=== PATIENT | male | born 1965 | race Caucasian/White ===

== ENCOUNTER 2017-05-19 10:04 | Inpatient (IN) | payer OTHER ==
[2017-05-19 10:52] VITALS: BMI 22.3
--- NOTE | 2017-05-19 11:29 | HP ---
CIWA Score - CIWA Score Nausea/Vomitin-No Nausea/No Vomiting Muscle Tremors: 4-Moderate,w/Arms Extend Anxiety: 4-Mod. Anxious/Guarded Agitation: 4-Moderately Restless Paroxysmal Sweats: 3 Orientation: 3-Disoriented Date>2 days Tacttile Disturbances: 0-None Auditory Disturbances: 0-None Visual Disturbances: 0-None Headache: 3-Moderate CIWA-Ar Total Score: 21 Admission ROS BHS - HPI Chief Complaint: Withdrawal sx Allergies/Adverse Reactions: Allergies Allergy/AdvReac Type Severity Reaction Status Date / Time No Known Allergies Allergy Verified 05/19/17 10:25 History of Present Illness: 52 y/o man with a long hx. of alcoholism is admitted for detox. Pt. reports previous detox & rehab followed by 2 yrs. sobriety. Exam Limitations: No Limitations - Ebola screening Have you traveled outside of the country in the last 21 days: No Have you had contact with anyone from an Ebola affected area: No Have you been sick,other than usual withdrawal symptoms: No Do you have a fever: No - Review of Systems Constitutional: Diaphoresis EENT: reports: No Symptoms Reported Respiratory: reports: No Symptoms reported Cardiac: reports: No Symptoms Reported GI: reports: Abdominal cramping : reports: Frequency Musculoskeletal: reports: Back Pain Integumentary: reports: Sweating Neuro: reports: Headache, Tremors, Other (frequent blackouts) Endocrine: reports: No Symptoms Reported Hematology: reports: No Symptoms Reported Psychiatric: reports: Agitated, Anxious Other Systems: Reviewed and Negative Patient History - Patient Medical History Hx Anemia: No Hx Asthma: No Hx Chronic Obstructive Pulmonary Disease (COPD): No Hx Cancer: No Hx Cardiac Disorders: No Hx Congestive Heart Failure: No Hx Hypertension: No Hx Hypercholesterolemia: Yes (no meds) Hx Pacemaker: No HX Cerebrovascular Accident: No Hx Seizures: No Hx Dementia: No Hx Diabetes: No Hx Gastrointestinal Disorders: No Hx Liver Disease: Yes (Hep c) Hx Genitourinary Disorders: No Hx Sexually Transmitted Disorders: No Hx Renal Disease (ESRD): No Hx Thyroid Disease: No Hx Human Immunodeficiency Virus (HIV): No Hx Hepatitis C: Yes (Needs tx.) Hx Depression: Yes Hx Suicide Attempt: Yes (many yrs. ago at 14 y/o tried to hang himself) Hx Bipolar Disorder: Yes Hx Schizophrenia: No - Patient Surgical History Past Surgical History: No Hx Neurologic Surgery: No Hx Cataract Extraction: No Hx Cardiac Surgery: No Hx Lung Surgery: No Hx Breast Surgery: No Hx Breast Biopsy: No Hx Abdominal Surgery: No Hx Appendectomy: No Hx Cholecystectomy: No Hx Genitourinary Surgery: No Hx Section: No Hx Orthopedic Surgery: No Anesthesia Reaction: No - PPD History Previous Implant?: Yes Documented Results: Positive w/o proof PPD to be Administered?: No - Smoking Cessation Smoking history: Current every day smoker Have you smoked in the past 12 months: Yes Aproximately how many cigarettes per day: 8 Hx Chewing Tobacco Use: No Initiated information on smoking cessation: Yes 'Breaking Loose' booklet given: 05/19/17 - Substance & Tx. History Hx Alcohol Use: Yes Hx Substance Use: No Substance Use Type: Alcohol Hx Substance Use Treatment: Yes (Detox & Rehab at [facility] 2014) - Substances Abused Alcohol-vodka/beer Route: Oral Frequency: Daily Amount used: 2-3 pts./2-3 6 pks. Age of first use: 13 Date of Last Use: 05/18/17 Family Disease History - Family Disease History Family History: Denies Admission Physical Exam [facility] - Vital Signs Vital Signs: Vital Signs - 24 hr 05/19/17 10:44 Temperature 96 F L Pulse Rate 82 Respiratory 20 Rate Blood Pressure 114/85 - Physical General Appearance: Yes: Alcohol on Breath, Tremorous, Irritable, Sweating, Anxious HEENTM: Yes: Within Normal Limits Respiratory: Yes: Chest Non-Tender, Lungs Clear, Normal Breath Sounds Neck: Yes: Supple Breast: Yes: Breast Exam Deferred Cardiology: Yes: Regular Rhythm, Regular Rate, S1, S2 Abdominal: Yes: Normal Bowel Sounds, Non Tender, Soft Genitourinary: Yes: Frequency (from alcohol) Back: Yes: Within Normal Limits Musculoskeletal: Yes: Within Normal Limits Extremities: Yes: Tremors Neurological: Yes: Fully Oriented, Alert Integumentary: Yes: Diaphoresis Lymphatic: Yes: Within Normal Limits - Diagnostic (1) Alcohol dependence with uncomplicated withdrawal Current Visit: Yes Status: Acute Cleared for Admission [facility] - Detox or Rehab [facility] Level of Care: Medically Managed Detox Regimen/Protocol: Librium [facility] Breath Alcohol Content Breath Alcohol Content: 0.062 Urine Drug Screen - Results Drug Screen Negative: Yes
[2017-05-19] MEDS ORDERED: LOPERAMIDE HCL 2 MG CAPSULE PO PRN (11:52)
[2017-05-19] MEDS ORDERED: MENTHOL/PHENOL 1 EACH UD MM PRN (11:52)
[2017-05-19] MEDS ORDERED: MAGNESIUM HYDROX 2400MG/30ML ORAL SUSPENSION 30 ML CUP PO PRN (11:52)
[2017-05-19] MEDS ORDERED: MAG HYDROX/AL HYDROX/SIMETH 30 ML UNIT-DOSE CUP PO PRN (11:52)
[2017-05-19] MEDS ORDERED: MAGNESIUM CITRATE 300 ML BOTTLE PO PRN (11:52)
[2017-05-19] MEDS ORDERED: IBUPROFEN 400 MG TABLET (FP) PO PRN (11:52)
[2017-05-19] MEDS ORDERED: NICOTINE POLACRILEX 2 MG GUM BUC PRN (11:52)
[2017-05-19] MEDS ORDERED: guaiFENesin/D-METHORPHAN HB 10 ML UNIT-DOSE CUPS PO PRN (11:52)
[2017-05-19] MEDS ORDERED: hydrOXYzine PAMOATE 50 MG CAPSULE (FP) PO PRN (11:52)
[2017-05-19] MEDS ORDERED: P-EPHED 60MG/TRIPROLIDI 2.5MG TABLET PO PRN (11:52)
[2017-05-19] MEDS ORDERED: diphenhydrAMINE HCL 50 MG CAPSULE PO PRN (11:52)
[2017-05-19] MEDS ORDERED: chlordiazePOXIDE HCL 25 MG CAPSULE PO PRN (11:52)
[2017-05-19] MEDS ORDERED: ACETAMINOPHEN 325 MG TABLET (FP) PO PRN (11:52)
[2017-05-19] MEDS ORDERED: chlordiazePOXIDE HCL 25 MG CAPSULE PO ONE (12:27)
[2017-05-19 14:05] LABS: MCH 33.8 pg (25.7-33.7); MCHC 33.8 g/dl (32.0-35.9); MEAN PLT VOLUME 8.3 fl (7.5-11.1); PLATELET COUNT 70 K/MM3 (134-434); RDW 14.9 % (11.9-15.9); WHITE BLOOD COUNT 4.2 K/mm3 (4.0-10.0)
[2017-05-19] MEDS: NICOTINE 21 MG/24 HOURS TOPICAL PATCH TD SCH (14:07)
[2017-05-19 14:15] LABS: ALBUMIN 2.9 g/dl (3.4-5.0); ANION GAP 9 (8-16); CALCIUM 7.9 mg/dL (8.5-10.1); CO2 26 mmol/L (21-32); CREATININE 0.8 mg/dL (0.7-1.3); GLUCOSE,RANDOM 162 mg/dL (74-106); SGPT/ALT 106 U/L (12-78)
[2017-05-19 14:17] LABS: ALK PHOS 87 U/L (45-117); BILIRUBIN,TOTAL 0.6 mg/dL (0.2-1.0); SGOT/AST 139 U/L (15-37); TOT PROT 7.9 g/dl (6.4-8.2)
[2017-05-19 14:34] LABS: SICKLE CELL SCREEN NEGATIVE (NEGATIVE)
[2017-05-19 15:06] LABS: HIV 1 & 2 AB NEGATIVE; HIV 1 AGp24 NEGATIVE
--- NOTE | 2017-05-19 16:25 | CONSULT ---
[facility] Psychiatric Consult - Data Date of interview: 05/19/17 Admission source: [facility] Identifying data: This is 52 years old H male residing with his family, employed admitted for Alcohol dependence. Substance Abuse History: Patient reports strting drinking since 13 years old, relapsed recently after 2 years of abstinence. Medical History: Significant for Hep C,hyperlipidemia. Psychiatric History: Patient reports first contact with psychiatrist in [place] about 10 years ago to address his depression,mood instability.He had no history of psychiatric hospitalizations,one suicidal attempt at the age of 14.Dx with Mood disorder,Bipolar disorder,no manic episodes reported.patient is not on psychiatric medications and is not willing to restart it at present time. Physical/Sexual Abuse/Trauma History: denies Mental Status Exam - Mental Status Exam Cognitive Function: Grossly Intact Patient Appearance: Unkempt Mood: Sad Affect: Appropriate, Mood Congruent Patient Behavior: Appropriate, Cooperative Speech Pattern: Clear Voice Loudness: Normal Thought Process: Goal Oriented Thought Disorder: Not Present Hallucinations: Denies Suicidal Ideation: Denies Homicidal Ideation: Denies Insight/Judgement: Fair Sleep: Fair Appetite: Fair Muscle strength/Tone: Normal Gait/Station: Normal Psychiatric Findings - Problem List ([place] 1, 2,3) (1) Alcohol dependence with uncomplicated withdrawal Current Visit: Yes Status: Chronic (2) Hep C w/o coma, chronic Current Visit: Yes Status: Inactive (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
[2017-05-19 17:10] LABS: URINE APPEARANCE SLCLOUDY; URINE BILIRUBIN NEGATIVE (NEGATIVE); URINE BLOOD 2+ (NEGATIVE); URINE COLOR YELLOW; URINE GLUCOSE (UA) 1+ (NEGATIVE); URINE KETONE NEGATIVE (NEGATIVE); URINE LEUK ESTERASE NEGATIVE (NEGATIVE); URINE NITRITE NEGATIVE (NEGATIVE); URINE PROTEIN NEGATIVE (NEGATIVE)
[2017-05-19 17:25] LABS: URINE MUCUS RARE; URINE RBC 3 /hpf (0-3); URINE WBC 1 /hpf (3-5)
[2017-05-19] MEDS: chlordiazePOXIDE HCL 25 MG CAPSULE PO SCH ×2 (17:31→22:13)
[2017-05-19] MEDS: THIAMINE HCL 100 MG TABLET (FP) PO SCH (22:13)
--- NOTE | 2017-05-19 22:14 | EKG ---
Test Reason : Blood Pressure : / mmHG Vent. Rate : 063 BPM Atrial Rate : 063 BPM P-R Int : 120 ms QRS Dur : 084 ms QT Int : 414 ms P-R-T Axes : 063 048 042 degrees QTc Int : 423 ms NORMAL SINUS RHYTHM NORMAL ECG NO PREVIOUS ECGS AVAILABLE REPEAT EKG IF CLINICALLY INDICATED Confirmed by CAMMY CR MD ([id number]) on 05/19/2017 10:14:22 PM Referred By: Confirmed By:CAMMY CR MD
[2017-05-20] MEDS: chlordiazePOXIDE HCL 25 MG CAPSULE PO SCH ×4 (05:40→22:21)
[2017-05-20] MEDS: NICOTINE 21 MG/24 HOURS TOPICAL PATCH TD SCH (10:38)
[2017-05-20] MEDS: PRENATAL VITAMINS W/ FOLIC ACID TABLET (FP) PO SCH (10:38)
--- NOTE | 2017-05-20 16:13 | PN ---
S CIWA - CIWA Score Nausea/Vomitin-Mild Nausea/No Vomiting Muscle Tremors: 5 Anxiety: 3 Agitation: 2 Paroxysmal Sweats: 1-Minimal Palms Moist Orientation: 0-Oriented Tacttile Disturbances: 2-Mild Itch/Numbness/Burn Auditory Disturbances: 0-None Visual Disturbances: 0-None Headache: 4-Moderately Severe CIWA-Ar Total Score: 18 BHS Progress Note (SOAP) Subjective: Tremors, Anxious, H/A. Objective: PT. A & O X 3. NO ACUTE DISTRESS. 05/20/17 16:11 Vital Signs Temperature 97.2 F L 05/20/17 09:42 Pulse Rate 77 05/20/17 09:42 Respiratory Rate 18 05/20/17 09:42 Blood Pressure 129/84 05/20/17 09:42 O2 Sat by Pulse Oximetry (%) Laboratory Tests 05/19/17 05/19/17 05/19/17 11:00 11:50 11:50 WBC 4.2 RBC 3.46 L Hgb 11.7 Hct 34.6 L MCV 100.0 H MCH 33.8 H MCHC 33.8 RDW 14.9 Plt Count 70 L MPV 8.3 Sickle Cell Screen Negative Sodium 143 Potassium 3.9 Chloride 108 H Carbon Dioxide 26 Anion Gap 9 BUN 10 Creatinine 0.8 Creat Clearance w eGFR > 60 Random Glucose 162 H Calcium 7.9 L Total Bilirubin 0.6 AST 139 H ALT 106 H Alkaline Phosphatase 87 Total Protein 7.9 Albumin 2.9 L Urine Color Urine Appearance Urine pH Ur Specific [place] Urine Protein Urine Glucose (UA) Urine Ketones Urine Blood Urine Nitrite Urine Bilirubin Urine Urobilinogen Urine RBC Urine WBC Ur Epithelial Cells Urine Mucus RPR Titer HIV 1&2 Antibody Screen Negative HIV P24 Antigen Negative 05/19/17 05/19/17 11:50 15:00 WBC RBC Hgb Hct MCV MCH MCHC RDW Plt Count MPV Sickle Cell Screen Sodium Potassium Chloride Carbon Dioxide Anion Gap BUN Creatinine Creat Clearance w eGFR Random Glucose Calcium Total Bilirubin AST ALT Alkaline Phosphatase Total Protein Albumin Urine Color Yellow Urine Appearance Slcloudy Urine pH 5.0 Ur Specific [place] 1.020 Urine Protein Negative Urine Glucose (UA) 1+ H Urine Ketones Negative Urine Blood 2+ H Urine Nitrite Negative Urine Bilirubin Negative Urine Urobilinogen 2.0 Urine RBC 3 Urine WBC 1 Ur Epithelial Cells Rare Urine Mucus Rare RPR Titer Nonreactive HIV 1&2 Antibody Screen HIV P24 Antigen LABS NOTED. Assessment: 05/20/17 16:12 WITHDRAWAL SYMPTOMS. Plan: CONTINUE DETOX. REPEAT UA FOR ADMISSION ABNORMALITIES. FEOSOL, 325 MG PO BIDWM. REPEAT CBC, AST, AND ALT ON 05/22/2017 FOR ABNORMAL ADMISSION VALUES. BGM ACBK FOR ELEVATED ADMISSION RANDOM GLUCOSE LEVEL. INCREASE DAILY PO FLUID INTAKE.
[2017-05-20] MEDS: FERROUS SO4 325 MG TABLET (FP) PO SCH (18:24)
[2017-05-20] MEDS: THIAMINE HCL 100 MG TABLET (FP) PO SCH (22:21)
[2017-05-21] MEDS: chlordiazePOXIDE HCL 25 MG CAPSULE PO SCH ×2 (07:13→10:47)
[2017-05-21] MEDS: FERROUS SO4 325 MG TABLET (FP) PO SCH ×2 (10:47→18:32)
[2017-05-21] MEDS: PRENATAL VITAMINS W/ FOLIC ACID TABLET (FP) PO SCH (10:47)
[2017-05-21] MEDS: NICOTINE 21 MG/24 HOURS TOPICAL PATCH TD SCH (11:20)
--- NOTE | 2017-05-21 11:57 | PN ---
S CIWA - CIWA Score Nausea/Vomitin-No Nausea/No Vomiting Muscle Tremors: 3 Anxiety: 4-Mod. Anxious/Guarded Agitation: 3 Paroxysmal Sweats: 3 Orientation: 0-Oriented Tacttile Disturbances: 0-None Auditory Disturbances: 0-None Visual Disturbances: 0-None Headache: 0-None Present CIWA-Ar Total Score: 13 BHS Progress Note (SOAP) Subjective: Anxiety,sweating,interrupted sleep restless,tremors Objective: 05/21/17 11:55 Vital Signs 05/21/17 05/21/17 06:24 09:50 Temperature 97.6 F 97.7 F Pulse Rate 89 87 Respiratory 18 20 Rate Blood Pressure 104/83 108/79 Laboratory Tests 05/19/17 05/19/17 05/19/17 11:00 11:50 11:50 WBC 4.2 RBC 3.46 L Hgb 11.7 Hct 34.6 L MCV 100.0 H MCH 33.8 H MCHC 33.8 RDW 14.9 Plt Count 70 L MPV 8.3 Sickle Cell Screen Negative Sodium 143 Potassium 3.9 Chloride 108 H Carbon Dioxide 26 Anion Gap 9 BUN 10 Creatinine 0.8 Creat Clearance w eGFR > 60 POC Glucometer Random Glucose 162 H Calcium 7.9 L Total Bilirubin 0.6 AST 139 H ALT 106 H Alkaline Phosphatase 87 Total Protein 7.9 Albumin 2.9 L Urine Color Urine Appearance Urine pH Ur Specific [place] Urine Protein Urine Glucose (UA) Urine Ketones Urine Blood Urine Nitrite Urine Bilirubin Urine Urobilinogen Urine RBC Urine WBC Ur Epithelial Cells Urine Mucus RPR Titer HIV 1&2 Antibody Screen Negative HIV P24 Antigen Negative 05/19/17 05/19/17 05/21/17 11:50 15:00 07:27 WBC RBC Hgb Hct MCV MCH MCHC RDW Plt Count MPV Sickle Cell Screen Sodium Potassium Chloride Carbon Dioxide Anion Gap BUN Creatinine Creat Clearance w eGFR POC Glucometer 99 Random Glucose Calcium Total Bilirubin AST ALT Alkaline Phosphatase Total Protein Albumin Urine Color Yellow Urine Appearance Slcloudy Urine pH 5.0 Ur Specific [place] 1.020 Urine Protein Negative Urine Glucose (UA) 1+ H Urine Ketones Negative Urine Blood 2+ H Urine Nitrite Negative Urine Bilirubin Negative Urine Urobilinogen 2.0 Urine RBC 3 Urine WBC 1 Ur Epithelial Cells Rare Urine Mucus Rare RPR Titer Nonreactive HIV 1&2 Antibody Screen HIV P24 Antigen f/u labs pending Assessment: 05/21/17 11:56 Withdrawal sx. Plan: Continue detox repeat u/a
[2017-05-21] MEDS ORDERED: chlordiazePOXIDE 5 MG CAPSULE PO SCH (17:00)
[2017-05-21 17:22] VITALS: BP 103/72; PULSE 60; TEMP 96.9
[2017-05-21 20:37] LABS: URINE APPEARANCE SLCLOUDY; URINE BILIRUBIN NEGATIVE (NEGATIVE); URINE BLOOD NEGATIVE (NEGATIVE); URINE COLOR AMBER; URINE GLUCOSE (UA) NEGATIVE (NEGATIVE); URINE KETONE TRACE (NEGATIVE); URINE LEUK ESTERASE NEGATIVE (NEGATIVE); URINE NITRITE NEGATIVE (NEGATIVE); URINE UROBILINOGEN 4.0 E.U/dl mg/dL (0.2-1.0)
[2017-05-21 20:39] LABS: URINE PROTEIN 1+ (NEGATIVE)
[2017-05-21 20:47] LABS: CALCIUM OXALATE CRYSTALS RARE /hpf (NONE SEEN); URINE MUCUS MANY; URINE RBC 4 /hpf (0-3); URINE WBC <1 /hpf (3-5)
--- NOTE | 2017-05-21 22:11 | DS ---
[facility] Detox Discharge Summary Admission Date: 05/19/17 Discharge Date: 05/21/17 - History Present History: Alcohol Dependence Additional Comments: PATIENT INSISTS TO LEAVE THE UNIT, REFUSES TO WAIT FACE TO FACE WITH THE PROVIDER Pertinent Past History: ALCOHOL DEPENDENCE - Physical Exam Results Vital Signs: Vital Signs Temperature 96.9 F L 05/21/17 17:21 Pulse Rate 60 05/21/17 17:21 Respiratory Rate 18 05/21/17 17:21 Blood Pressure 103/72 05/21/17 17:21 O2 Sat by Pulse Oximetry (%) Pertinent Admission Physical Exam Findings: WITHDRAWAL SX Laboratory Last Values WBC 4.2 K/mm3 (4.0-10.0) 05/19/17 11:50 RBC 3.46 M/mm3 (4.00-5.60) L 05/19/17 11:50 Hgb 11.7 GM/dL (11.7-16.9) 05/19/17 11:50 Hct 34.6 % (35.4-49) L 05/19/17 11:50 MCV 100.0 fl (80-96) H 05/19/17 11:50 MCH 33.8 pg (25.7-33.7) H 05/19/17 11:50 MCHC 33.8 g/dl (32.0-35.9) 05/19/17 11:50 RDW 14.9 % (11.9-15.9) 05/19/17 11:50 Plt Count 70 K/MM3 (134-434) L 05/19/17 11:50 MPV 8.3 fl (7.5-11.1) 05/19/17 11:50 Sickle Cell Screen Negative (NEGATIVE) 05/19/17 11:50 Sodium 143 mmol/L (136-145) 05/19/17 11:50 Potassium 3.9 mmol/L (3.5-5.1) 05/19/17 11:50 Chloride 108 mmol/L (98-107) H 05/19/17 11:50 Carbon Dioxide 26 mmol/L (21-32) 05/19/17 11:50 Anion Gap 9 (8-16) 05/19/17 11:50 BUN 10 mg/dL (7-18) 05/19/17 11:50 Creatinine 0.8 mg/dL (0.7-1.3) 05/19/17 11:50 Creat Clearance w eGFR > 60 (>60) 05/19/17 11:50 POC Glucometer 99 UNITS (()) 05/21/17 07:27 Random Glucose 162 mg/dL (74-106) H 05/19/17 11:50 Calcium 7.9 mg/dL (8.5-10.1) L 05/19/17 11:50 Total Bilirubin 0.6 mg/dL (0.2-1.0) 05/19/17 11:50 AST 139 U/L (15-37) H 05/19/17 11:50 ALT 106 U/L (12-78) H 05/19/17 11:50 Alkaline Phosphatase 87 U/L (45-117) 05/19/17 11:50 Total Protein 7.9 g/dl (6.4-8.2) 05/19/17 11:50 Albumin 2.9 g/dl (3.4-5.0) L 05/19/17 11:50 Urine Color [place] 05/21/17 15:11 Urine Appearance Slcloudy 05/21/17 15:11 Urine pH 6.0 (5.0-8.0) 05/21/17 15:11 Ur Specific [place] 1.025 (1.005-1.025) 05/21/17 15:11 Urine Protein 1+ (NEGATIVE) H 05/21/17 15:11 Urine Glucose (UA) Negative (NEGATIVE) 05/21/17 15:11 Urine Ketones Trace (NEGATIVE) H 05/21/17 15:11 Urine Blood Negative (NEGATIVE) 05/21/17 15:11 Urine Nitrite Negative (NEGATIVE) 05/21/17 15:11 Urine Bilirubin Negative (NEGATIVE) 05/21/17 15:11 Urine Urobilinogen 4.0 e.u/dl mg/dL (0.2-1.0) 05/21/17 15:11 Urine RBC 4 /hpf (0-3) 05/21/17 15:11 Urine WBC <1 /hpf (3-5) 05/21/17 15:11 Ur Epithelial Cells Rare /hpf (FEW) 05/21/17 15:11 Calcium Oxalate Crystal Rare /hpf (NONE SEEN) 05/21/17 15:11 Urine Mucus Many 05/21/17 15:11 RPR Titer Nonreactive (NONREACTIVE) 05/19/17 11:50 HIV 1&2 Antibody Screen Negative 05/19/17 11:00 HIV P24 Antigen Negative 05/19/17 11:00 LAB NOTED - Treatment Hospital Course: Detox Protocol Followed, Responded well - Medication Discharge Medications: Ambulatory Orders NK [No Known Home Medication] 05/19/17 - Diagnosis (1) Alcohol dependence with uncomplicated withdrawal Status: Acute (2) Hep C w/o coma, chronic Status: Inactive - AMA Did Patient Leave Against Medical Advice: Yes
[2017-05-22] MEDS ORDERED: chlordiazePOXIDE HCL 10 MG CAPSULE PO SCH (17:00)
== END 2017-05-21 18:27 | disposition left against medical advice (07) | DRG 770 ==
LOC: YASAS 10:04 → Y3N 11:45
PROVIDERS: ADMIT Internal Medicine; ATTEND Internal Medicine
PROC: HZ2ZZZZ Detoxification Services for Substance Abuse Treatment (ICD-10-PCS; principal; 2017-05-19)
DX: F10.230 Alcohol dependence with withdrawal, uncomplicated (principal); F31.9 Bipolar disorder, unspecified; B18.2 Chronic viral hepatitis C; Z91.5 Personal history of self-harm
CPT/HCPCS: 36415; 71020-TC; 80053; 81003; 81015; 85027; 85660; 86593; 87389; 93005; 93010

== ENCOUNTER 2018-12-19 15:14 | Inpatient (IN) | payer OTHER ==
[2018-12-19 15:34] VITALS: BMI 24.3
--- NOTE | 2018-12-19 16:44 | HP ---
CIWA Score Nausea/Vomitin-No Nausea/No Vomiting Muscle Tremors: 4-Moderate,w/Arms Extend Anxiety: 3 Agitation: 1-Slight > Activity Paroxysmal Sweats: 3 (Increased facial moisture) Orientation: 0-Oriented Tacttile Disturbances: 0-None Auditory Disturbances: 0-None Visual Disturbances: 0-None Headache: 2-Mild CIWA-Ar Total Score: 13 - Admission Criteria [facility]AS Guidelines: Admission for Medically Managed Detox: Requires at least one of the followin. CIWA greater than 12 2. Seizures within the past 24 hours 3. Delirium tremens within the past 24 hours 4. Hallucinations within the past 24 hours 5. Acute intervention needed for co occurring medical disorder 6. Acute intervention needed for co occurring psychiatric disorder 7. Severe withdrawal that cannot be handled at a lower level of care (continued vomiting, continued diarrhea, abnormal vital signs) requiring intravenous medication and/or fluids 8. Patient presents the following: CIWA greater than 12 ([place] 0.116) Admission Criteria Met: Admission criteria met Admission ROS [facility] Chief Complaint: \Alcohol problem Allergies/Adverse Reactions: Allergies Allergy/AdvReac Type Severity Reaction Status Date / Time No Known Allergies Allergy Verified 05/19/17 10:25 History of Present Illness: Here for alcohol detox. Last detox 3 years. States started back a few weeks ago. Alcohol use since age 12. Current intake for past few weeks @ 4-5 pints/day. Nicotine use since age 13. Cocaine and Benzo - states unknown how cocaine and benzos are positive in U- tox. Denies use. Denies hx seizures, blackouts, overdoses. PMHx: Denies significant PMHx. Rash both legs x 1 week. Denies medication. Rash does not inch. Denies known exposure to syphilis. MHHx: Occ depression. Denies thoughts of harming self or others. Patient Name: Abdullahi Cardona Date: 1965 Address: [address] [place] [address] Sex: Male Rx Written Rx Dispensed Drug Quantity Days Supply Prescriber Name 04/28/2018 04/29/2018 chlordiazepoxide 25 mg capsule 8 2 Mauriec Wang Exam Limitations: No Limitations - Ebola screening Have you traveled outside of the country in the last 21 days: No (N) Have you had contact with anyone from an Ebola affected area: No Have you been sick,other than usual withdrawal symptoms: No (Denies measles exposure) Do you have a fever: No - Review of Systems Constitutional: Diaphoresis EENT: reports: No Symptoms Reported Respiratory: reports: No Symptoms reported Cardiac: reports: No Symptoms Reported GI: reports: No Symptoms Reported : reports: No Symptoms Reported Musculoskeletal: reports: No Symptoms Reported Integumentary: reports: Rash Neuro: reports: Headache, Tremors Endocrine: reports: Increased Thirst Hematology: reports: No Symptoms Reported Psychiatric: reports: Judgement Intact, Orientated x3, Agitated, Anxious, Depressed (Denies thoughts of harming self or others.) Patient History - Patient Medical History Hx Anemia: No Hx Asthma: No Hx Chronic Obstructive Pulmonary Disease (COPD): No Hx Cancer: No Hx Cardiac Disorders: No Hx Congestive Heart Failure: No Hx Hypertension: No Hx Hypercholesterolemia: Yes (no meds) Hx Pacemaker: No HX Cerebrovascular Accident: No Hx Seizures: No Hx Dementia: No Hx Diabetes: No Hx Gastrointestinal Disorders: No Hx Liver Disease: Yes (Hep c) Hx Genitourinary Disorders: No Hx Sexually Transmitted Disorders: No Hx Renal Disease (ESRD): No Hx Thyroid Disease: No Hx Human Immunodeficiency Virus (HIV): No Hx Hepatitis C: Yes (Needs tx.) Hx Depression: Yes Hx Suicide Attempt: Yes (many yrs. ago at 14 y/o tried to hang himself) Hx Bipolar Disorder: Yes Hx Schizophrenia: No - Patient Surgical History Past Surgical History: No Hx Neurologic Surgery: No Hx Cataract Extraction: No Hx Cardiac Surgery: No Hx Lung Surgery: No Hx Breast Surgery: No Hx Breast Biopsy: No Hx Abdominal Surgery: No Hx Appendectomy: No Hx Cholecystectomy: No Hx Genitourinary Surgery: No Hx Section: No Hx Orthopedic Surgery: No Anesthesia Reaction: No - PPD History Previous Implant?: Yes Documented Results: Negative w/proof Implanted On Prior [facility] Admission?: Yes PPD to be Administered?: Yes - Smoking Cessation Smoking history: Current every day smoker Have you smoked in the past 12 months: Yes Aproximately how many cigarettes per day: 8 Hx Chewing Tobacco Use: No Initiated information on smoking cessation: Yes 'Breaking Loose' booklet given: 12/19/18 - Substance & Tx. History Hx Alcohol Use: Yes Hx Substance Use: Yes Substance Use Type: Alcohol Hx Substance Use Treatment: Yes (detox) - Substances abused Alcohol Substance route: Oral Frequency: Daily Amount used: 4-5 pints of voldka Age of first use: 12 Date of last use: 12/18/18 Admission Physical Exam [facility] - Vital Signs Vital Signs: Vital Signs - 24 hr 12/19/18 15:18 Temperature 96.8 F L Pulse Rate 76 Respiratory 16 Rate Blood Pressure 107/73 - Physical General Appearance: Yes: Mild Distress, Alcohol on Breath, Tremorous, Sweating, Anxious HEENTM: Yes: EOMI, Hearing grossly Normal, Normocephalic, Normal Voice, [place], Pharynx Normal Respiratory: Yes: Lungs Clear, Normal Breath Sounds, No Respiratory Distress Neck: Yes: No masses,lesions,Nodules, Supple Breast: Yes: Breast Exam Deferred Cardiology: Yes: S1, S2, Murmur, Irregular Abdominal: Yes: Soft, Increased Bowel Sounds, Tenderness (Mid-epigastric and RUQ tenderness upon palpation. No rebound. No guarding.) Genitourinary: Yes: Within Normal Limits Back: Yes: Normal Inspection Musculoskeletal: Yes: full range of Motion, Gait Steady Extremities: Yes: Normal Range of Motion, Tremors, Delayed Capillary Refill (of toes. Pedal pulses present), Swelling ((R) calf = 40 cm, (L) calf = 41 cm.), Other (Bilateral engorged varicose veins w/ increased [id number]- ashtyn color of legs from toes to just below knees (L) > (R).) Neurological: Yes: ladies attendant II-XII NML intact, Fully Oriented, Alert, Motor Strength 5/5 Integumentary: Yes: Warm, Diaphoresis (Increased facial moisture.), Rash (red, raised confluent rash on arms and legs. Worse on legs than arms. No rash on chest, hands or feet.) Lymphatic: Yes: Within Normal Limits - Diagnostic (1) Syphilis contact Current Visit: Yes Status: Suspected Comment: R/o syphilis. Has lesions on arms and legs. None on palms or bottom of feet. (2) Alcohol dependence with uncomplicated withdrawal Current Visit: Yes Status: Acute (3) Nicotine dependence, uncomplicated Current Visit: Yes Status: Chronic Qualifiers: Nicotine product type: cigarettes Qualified Code(s): F17.210 - Nicotine dependence, cigarettes, uncomplicated (4) Varicose veins of both lower extremities Current Visit: Yes Status: Chronic Qualifiers: Varicose vein complication: unspecified Qualified Code(s): I83.93 - Asymptomatic varicose veins of bilateral lower extremities Comment: with presence of venous stasis Cleared for Admission S - Detox or Rehab [facility] Level of Care: Medically Managed Detox Regimen/Protocol: Librium Claeared for Rehab Admission: No Breathalyzer - Breathalyzer Breathalyzer: 0.116 Urine Drug Screen - Test Device Lot number: [id number] Expiration date: 07/30/19 - Control Is test valid?: Yes - Results Urine drug screen results: SARATH-Cocaine, BZO-Benzodiazepines Inpatient Rehab Admission - Rehab Decision to Admit Inpatient rehab admission?: No
[2018-12-19] MEDS ORDERED: BISMUTH SUBSALICYLATE 524 MG/30 ML UD PO PRN (17:23)
[2018-12-19] MEDS ORDERED: METHOCARBAMOL 500 MG TABLET PO PRN (17:23)
[2018-12-19] MEDS ORDERED: MAGNESIUM HYDROX 2400MG/30ML ORAL SUSPENSION 30 ML CUP PO PRN (17:23)
[2018-12-19] MEDS ORDERED: MAGNESIUM CITRATE 300 ML BOTTLE PO PRN (17:23)
[2018-12-19] MEDS ORDERED: chlordiazePOXIDE HCL 25 MG CAPSULE PO PRN (17:23)
[2018-12-19] MEDS ORDERED: MAG HYDROX/AL HYDROX/SIMETH 30 ML UNIT-DOSE CUP PO PRN (17:23)
[2018-12-19] MEDS ORDERED: IBUPROFEN 400 MG TABLET (FP) PO PRN (17:23)
[2018-12-19] MEDS ORDERED: MENTHOL/PHENOL 1 EACH UD MM PRN (17:23)
[2018-12-19] MEDS ORDERED: MELATONIN 5 MG TABLETS PO PRN (17:23)
[2018-12-19] MEDS ORDERED: NICOTINE POLACRILEX 2 MG GUM BUC PRN (17:23)
[2018-12-19] MEDS ORDERED: ACETAMINOPHEN 325 MG TABLET (FP) PO PRN ×2 (17:23)
[2018-12-19] MEDS ORDERED: chlordiazePOXIDE HCL 25 MG CAPSULE PO ONE (17:45)
[2018-12-19 18:20] LABS: PH,URINE 6.5 (5.0-8.0); URINE APPEARANCE CLEAR; URINE BILIRUBIN NEGATIVE (NEGATIVE); URINE COLOR DK YELLOW; URINE GLUCOSE (UA) NEGATIVE (NEGATIVE); URINE KETONE TRACE (NEGATIVE); URINE LEUK ESTERASE NEGATIVE (NEGATIVE); URINE NITRITE NEGATIVE (NEGATIVE); URINE PROTEIN NEGATIVE (NEGATIVE)
[2018-12-19] MEDS: THIAMINE HCL 100 MG TABLET (FP) PO SCH (22:14)
[2018-12-19] MEDS: chlordiazePOXIDE HCL 25 MG CAPSULE PO SCH (22:14)
[2018-12-20] MEDS: chlordiazePOXIDE HCL 25 MG CAPSULE PO SCH ×2 (06:22→10:15)
[2018-12-20 09:43] LABS: HEMATOCRIT 34.8 % (35.4-49); HEMOGLOBIN 12.3 GM/dL (11.7-16.9); MCH 33.7 pg (25.7-33.7); MCHC 35.2 g/dl (32.0-35.9); MEAN CELL VOLUME 95.7 fl (80-96); MEAN PLT VOLUME 8.1 fl (7.5-11.1); PLATELET COUNT 69 K/MM3 (134-434); RBC 3.64 M/mm3 (4.00-5.60)
[2018-12-20 09:52] LABS: ALBUMIN 2.7 g/dl (3.4-5.0); ALK PHOS 119 U/L (45-117); ANION GAP 6 MMOL/L (8-16); BILIRUBIN,TOTAL 0.8 mg/dL (0.2-1); BLOOD UREA NITROGEN 7 mg/dL (7-18); CALCIUM 7.8 mg/dL (8.5-10.1); CHLORIDE 104 mmol/L (98-107); CO2 31 mmol/L (21-32); CREATININE 0.7 mg/dL (0.55-1.3); GLUCOSE,RANDOM 110 mg/dL (74-106); POTASSIUM 3.5 mmol/L (3.5-5.1); SGOT/AST 163 U/L (15-37); SGPT/ALT 147 U/L (13-61); SODIUM 141 mmol/L (136-145); TOT PROT 7.2 g/dl (6.4-8.2)
--- NOTE | 2018-12-20 10:01 | EKG ---
Test Reason : Blood Pressure : / mmHG Vent. Rate : 072 BPM Atrial Rate : 072 BPM P-R Int : 136 ms QRS Dur : 080 ms QT Int : 412 ms P-R-T Axes : 053 030 039 degrees QTc Int : 451 ms NORMAL SINUS RHYTHM NORMAL ECG WHEN COMPARED WITH ECG OF 19-MAY-2017 14:21, T WAVE AMPLITUDE HAS DECREASED IN ANTEROLATERAL LEADS Confirmed by TERRANCE DORMAN MD ([id number]) on 12/20/2018 10:01:02 AM Referred By: BESS MANUEL Confirmed By:TERRANCE DORMAN MD
[2018-12-20] MEDS: NICOTINE 14 MG/24 HOURS TOPICAL PATCH TD SCH (10:15)
[2018-12-20] MEDS: PRENATAL VITAMINS W/ FOLIC ACID TABLET (FP) PO SCH (10:15)
--- NOTE | 2018-12-20 16:33 | PN ---
S CIWA - CIWA Score Nausea/Vomitin-No Nausea/No Vomiting Muscle Tremors: 3 Anxiety: 3 Agitation: 0-Normal Activity Paroxysmal Sweats: 3 Orientation: 2-Disoriented Date<2 days Tacttile Disturbances: 0-None Auditory Disturbances: 0-None Visual Disturbances: 1-Very Mild Sensitivity Headache: 2-Mild CIWA-Ar Total Score: 14 S Progress Note (SOAP) Subjective: Sweating, Tremors, H/A, Anxious. Objective: PATIENT A & O X 2 (UNCERTAIN ABOUT CURRENT DAY / DATE). IN NO ACUTE DISTRESS. 12/20/18 16:33 Vital Signs Temperature 97.1 F L 12/20/18 13:31 Pulse Rate 93 H 12/20/18 13:31 Respiratory Rate 20 12/20/18 13:31 Blood Pressure 132/88 12/20/18 13:31 O2 Sat by Pulse Oximetry (%) Laboratory Tests 12/19/18 12/20/18 12/20/18 17:30 07:45 07:45 WBC 4.0 RBC 3.64 L Hgb 12.3 Hct 34.8 L MCV 95.7 MCH 33.7 MCHC 35.2 RDW 16.0 H Plt Count 69 L MPV 8.1 Sodium 141 Potassium 3.5 Chloride 104 Carbon Dioxide 31 Anion Gap 6 L BUN 7 Creatinine 0.7 Creat Clearance w eGFR 118.43 Random Glucose 110 H Calcium 7.8 L Total Bilirubin 0.8 AST 163 H ALT 147 H Alkaline Phosphatase 119 H Total Protein 7.2 Albumin 2.7 L Urine Color Dk yellow Urine Appearance Clear Urine pH 6.5 Ur Specific [place] 1.019 Urine Protein Negative Urine Glucose (UA) Negative Urine Ketones Trace H Urine Blood Negative Urine Nitrite Negative Urine Bilirubin Negative Urine Urobilinogen 2.0 Ur Leukocyte Esterase Negative RPR Titer 12/20/18 07:45 WBC RBC Hgb Hct MCV MCH MCHC RDW Plt Count MPV Sodium Potassium Chloride Carbon Dioxide Anion Gap BUN Creatinine Creat Clearance w eGFR Random Glucose Calcium Total Bilirubin AST ALT Alkaline Phosphatase Total Protein Albumin Urine Color Urine Appearance Urine pH Ur Specific [place] Urine Protein Urine Glucose (UA) Urine Ketones Urine Blood Urine Nitrite Urine Bilirubin Urine Urobilinogen Ur Leukocyte Esterase RPR Titer Nonreactive LABS NOTED. Assessment: 12/20/18 16:40 WITHDRAWAL SYMPTOMS. ELEVATED LIVER ENZYMES. THROMBOCYTOPENIA. HYPOCALCEMIA. Plan: CONTINUE DETOX. INCREASE DAILY PO FLUID / WATER INTAKE. DUE TO SIGNIFICANTLY ELEVATED LIVER ENZYMES, CHANGE FROM LIBRIUM DETOX PROTOCOL TO ATIVAN DETOX PROTOCOL. HFP ON 12/22/2018 TO SEE IF ANY CHANGE IN LIVER ENZYME VALUES. OSCAL, 500 MG PO BID FOR LOW ADMISSION CA LEVEL.
[2018-12-20] MEDS ORDERED: LORazepam 1 MG TABLET PO PRN (16:36)
[2018-12-20] MEDS: LORazepam 1 MG TABLET PO SCH ×2 (17:33→22:09)
[2018-12-20] MEDS: CALCIUM 500MG/VIT-D 200 UNITS COMBO TABLET (FP) PO SCH (22:09)
[2018-12-20] MEDS: THIAMINE HCL 100 MG TABLET (FP) PO SCH (22:09)
[2018-12-20] MEDS ORDERED: chlordiazePOXIDE HCL 25 MG CAPSULE PO SCH (23:00)
[2018-12-21] MEDS: LORazepam 1 MG TABLET PO SCH ×2 (06:07→10:30)
[2018-12-21] MEDS: PRENATAL VITAMINS W/ FOLIC ACID TABLET (FP) PO SCH (10:30)
[2018-12-21] MEDS: CALCIUM 500MG/VIT-D 200 UNITS COMBO TABLET (FP) PO SCH ×2 (10:30→22:07)
[2018-12-21] MEDS: NICOTINE 14 MG/24 HOURS TOPICAL PATCH TD SCH (10:31)
[2018-12-21] MEDS ORDERED: LORazepam 0.5 MG TABLET PO PRN (16:40)
--- NOTE | 2018-12-21 16:41 | PN ---
[facility] CIWA - CIWA Score Nausea/Vomitin-No Nausea/No Vomiting Muscle Tremors: 3 Anxiety: 2 Agitation: 0-Normal Activity Paroxysmal Sweats: 3 Orientation: 0-Oriented Tacttile Disturbances: 1-Very Mild Itch/Numbness Auditory Disturbances: 0-None Visual Disturbances: 2-Mild Sensitivity Headache: 0-None Present CIWA-Ar Total Score: 11 S Progress Note (SOAP) Subjective: Sweating, Anxious, Body Aches, H/A. Objective: PATIENT A & O X 3. IN NO ACUTE DISTRESS. 12/21/18 16:37 Vital Signs Temperature 96.1 F L 12/21/18 13:14 Pulse Rate 75 12/21/18 13:14 Respiratory Rate 18 12/21/18 13:14 Blood Pressure 108/69 12/21/18 13:14 O2 Sat by Pulse Oximetry (%) Laboratory Tests 12/19/18 12/20/18 12/20/18 17:30 07:45 07:45 WBC 4.0 RBC 3.64 L Hgb 12.3 Hct 34.8 L MCV 95.7 MCH 33.7 MCHC 35.2 RDW 16.0 H Plt Count 69 L MPV 8.1 Sodium 141 Potassium 3.5 Chloride 104 Carbon Dioxide 31 Anion Gap 6 L BUN 7 Creatinine 0.7 Creat Clearance w eGFR 118.43 Random Glucose 110 H Calcium 7.8 L Total Bilirubin 0.8 AST 163 H ALT 147 H Alkaline Phosphatase 119 H Total Protein 7.2 Albumin 2.7 L Urine Color Dk yellow Urine Appearance Clear Urine pH 6.5 Ur Specific [place] 1.019 Urine Protein Negative Urine Glucose (UA) Negative Urine Ketones Trace H Urine Blood Negative Urine Nitrite Negative Urine Bilirubin Negative Urine Urobilinogen 2.0 Ur Leukocyte Esterase Negative RPR Titer 12/20/18 07:45 WBC RBC Hgb Hct MCV MCH MCHC RDW Plt Count MPV Sodium Potassium Chloride Carbon Dioxide Anion Gap BUN Creatinine Creat Clearance w eGFR Random Glucose Calcium Total Bilirubin AST ALT Alkaline Phosphatase Total Protein Albumin Urine Color Urine Appearance Urine pH Ur Specific [place] Urine Protein Urine Glucose (UA) Urine Ketones Urine Blood Urine Nitrite Urine Bilirubin Urine Urobilinogen Ur Leukocyte Esterase RPR Titer Nonreactive LABS NOTED. Assessment: 12/21/18 16:39 WITHDRAWAL SYMPTOMS. HYPOCALCEMIA. ELEVATED LIVER ENZYMES. THROMBOCYTOPENIA. 12/21/18 16:40 Plan: CONTINUE DETOX. CONTINUE OSCAL, 500 MG PO BID. HFP TOMORROW AM FOR ELEVATED LIVER ENZYMES VALUES NOTED ON ADMISSION.
[2018-12-21] MEDS: LORazepam 0.5 MG TABLET PO SCH ×2 (17:18→22:07)
--- NOTE | 2018-12-21 18:39 | PN ---
S Progress Note Note: Vital Signs Temperature 98.0 F 12/21/18 18:00 Pulse Rate 77 12/21/18 18:00 Respiratory Rate 17 12/21/18 18:00 Blood Pressure 105/68 12/21/18 18:00 O2 Sat by Pulse Oximetry (%) hx PPD + chest xray ordered continue to monitor
[2018-12-21] MEDS: THIAMINE HCL 100 MG TABLET (FP) PO SCH (22:07)
[2018-12-21] MEDS ORDERED: chlordiazePOXIDE HCL 10 MG CAPSULE PO SCH (23:00)
[2018-12-21] MEDS ORDERED: chlordiazePOXIDE HCL 10 MG CAPSULE PO PRN (23:00)
[2018-12-22] MEDS: LORazepam 0.5 MG TABLET PO SCH ×2 (06:18→10:36)
[2018-12-22] MEDS: NICOTINE 14 MG/24 HOURS TOPICAL PATCH TD SCH (10:35)
[2018-12-22] MEDS: PRENATAL VITAMINS W/ FOLIC ACID TABLET (FP) PO SCH (10:36)
[2018-12-22] MEDS: CALCIUM 500MG/VIT-D 200 UNITS COMBO TABLET (FP) PO SCH (10:36)
[2018-12-22 12:22] LABS: ALBUMIN 2.9 g/dl (3.4-5.0); BILIRUBIN,DIRECT 0.5 mg/dL (0.0-0.2); BILIRUBIN,TOTAL 1.2 mg/dL (0.2-1); TOT PROT 7.9 g/dl (6.4-8.2)
--- NOTE | 2018-12-22 12:27 | DS ---
[facility] Detox Discharge Summary Admission Date: 12/19/18 Discharge Date: 12/22/18 - History Present History: Alcohol Dependence Additional Comments: 53 years old male admitted on 12/19/18 for alcohol withdrawal stabilization completed detox regimen [facility] Physical Exam Results Vital Signs: Vital Signs Temperature 97.4 F L 12/22/18 09:34 Pulse Rate 80 12/22/18 09:34 Respiratory Rate 18 12/22/18 09:34 Blood Pressure 108/74 12/22/18 09:34 O2 Sat by Pulse Oximetry (%) Pertinent Admission Physical Exam Findings: alcohol withdrawal sx Laboratory Last Values WBC 4.0 K/mm3 (4.0-10.0) 12/20/18 07:45 RBC 3.64 M/mm3 (4.00-5.60) L 12/20/18 07:45 Hgb 12.3 GM/dL (11.7-16.9) 12/20/18 07:45 Hct 34.8 % (35.4-49) L 12/20/18 07:45 MCV 95.7 fl (80-96) 12/20/18 07:45 MCH 33.7 pg (25.7-33.7) 12/20/18 07:45 MCHC 35.2 g/dl (32.0-35.9) 12/20/18 07:45 RDW 16.0 % (11.9-15.9) H 12/20/18 07:45 Plt Count 69 K/MM3 (134-434) L 12/20/18 07:45 MPV 8.1 fl (7.5-11.1) 12/20/18 07:45 Sodium 141 mmol/L (136-145) 12/20/18 07:45 Potassium 3.5 mmol/L (3.5-5.1) 12/20/18 07:45 Chloride 104 mmol/L (98-107) 12/20/18 07:45 Carbon Dioxide 31 mmol/L (21-32) 12/20/18 07:45 Anion Gap 6 MMOL/L (8-16) L 12/20/18 07:45 BUN 7 mg/dL (7-18) 12/20/18 07:45 Creatinine 0.7 mg/dL (0.55-1.3) 12/20/18 07:45 Creat Clearance w eGFR 118.43 (>60) 12/20/18 07:45 Random Glucose 110 mg/dL (74-106) H 12/20/18 07:45 Calcium 7.8 mg/dL (8.5-10.1) L 12/20/18 07:45 Total Bilirubin 1.2 mg/dL (0.2-1) H 12/22/18 08:45 Direct Bilirubin 0.5 mg/dL (0.0-0.2) H 12/22/18 08:45 AST 128 U/L (15-37) H 12/22/18 08:45 ALT 136 U/L (13-61) H 12/22/18 08:45 Alkaline Phosphatase 104 U/L (45-117) 12/22/18 08:45 Total Protein 7.9 g/dl (6.4-8.2) 12/22/18 08:45 Albumin 2.9 g/dl (3.4-5.0) L 12/22/18 08:45 Urine Color Dk yellow 12/19/18 17:30 Urine Appearance Clear 12/19/18 17:30 Urine pH 6.5 (5.0-8.0) 12/19/18 17:30 Ur Specific [place] 1.019 (1.010-1.035) 12/19/18 17:30 Urine Protein Negative (NEGATIVE) 12/19/18 17:30 Urine Glucose (UA) Negative (NEGATIVE) 12/19/18 17:30 Urine Ketones Trace (NEGATIVE) H 12/19/18 17:30 Urine Blood Negative (NEGATIVE) 12/19/18 17:30 Urine Nitrite Negative (NEGATIVE) 12/19/18 17:30 Urine Bilirubin Negative (NEGATIVE) 12/19/18 17:30 Urine Urobilinogen 2.0 mg/dL (0.2-1.0) 12/19/18 17:30 Ur Leukocyte Esterase Negative (NEGATIVE) 12/19/18 17:30 RPR Titer Nonreactive (NONREACTIVE) 12/20/18 07:45 lab noted repeat ast ca supplement discontinue motrin - Treatment Hospital Course: Detox Protocol Followed, Detoxed Safely, Responded well, Discharged Condition Good, Rehab Referral Accepted Patient has Accepted [facility] Referral [facility] - Medication Discharge Medications: Ambulatory Orders NK [No Known Home Medication] 05/19/17 - Diagnosis (1) Hypocalcemia Current Visit: Yes Status: Chronic (2) Liver enzyme elevation Current Visit: Yes Status: Acute (3) Temporary low platelet count Current Visit: Yes Status: Chronic (4) Alcohol dependence with uncomplicated withdrawal Current Visit: Yes Status: Acute (5) Nicotine dependence, uncomplicated Current Visit: Yes Status: Acute Qualifiers: Nicotine product type: cigarettes Qualified Code(s): F17.210 - Nicotine dependence, cigarettes, uncomplicated - AMA Did Patient Leave Against Medical Advice: No
[2018-12-22 13:45] VITALS: BP 112/79; PULSE 75; TEMP 96.6
[2018-12-22] MEDS ORDERED: chlordiazePOXIDE HCL 10 MG CAPSULE PO SCH (23:00)
== END 2018-12-22 15:19 | disposition home or self-care (01) | DRG 775 ==
LOC: YASAS 15:14 → Y3N 17:14
PROVIDERS: ADMIT Surgery; ATTEND Surgery
PROC: HZ2ZZZZ Detoxification Services for Substance Abuse Treatment (ICD-10-PCS; principal; 2018-12-19)
DX: F10.230 Alcohol dependence with withdrawal, uncomplicated (principal); F17.210 Nicotine dependence, cigarettes, uncomplicated; R94.5 Abnormal results of liver function studies; E83.51 Hypocalcemia; D69.6 Thrombocytopenia, unspecified; R01.1 Cardiac murmur, unspecified; Z20.2 Contact with and (suspected) exposure to infections with a predominantly sexual mode of transmission; Z91.5 Personal history of self-harm
CPT/HCPCS: 36415; 71046-TC-FY; 80053; 80076; 81003; 85027; 86593; 93005; 93010

== ENCOUNTER 2019-03-30 08:37 | Inpatient (IN) | payer OTHER ==
[2019-03-30 08:58] VITALS: BMI 22.8
--- NOTE | 2019-03-30 09:41 | HP ---
CIWA Score Nausea/Vomitin-No Nausea/No Vomiting Muscle Tremors: 1-None Visible, but [place] Anxiety: 0-No Anxiety, at Ease Agitation: 0-Normal Activity Paroxysmal Sweats: 4-Forehead w/Sweat Beads Orientation: 3-Disoriented Date>2 days Tacttile Disturbances: 1-Very Mild Itch/Numbness Auditory Disturbances: 1-Very Mild Visual Disturbances: 1-Very Mild Sensitivity Headache: 1-Very Mild (Patient not in acute withdrawals yet because last drank this AM at 7AM) CIWA-Ar Total Score: 12 - Admission Criteria OASAS Guidelines: Admission for Medically Managed Detox: Requires at least one of the followin. CIWA greater than 12 2. Seizures within the past 24 hours 3. Delirium tremens within the past 24 hours 4. Hallucinations within the past 24 hours 5. Acute intervention needed for co occurring medical disorder 6. Acute intervention needed for co occurring psychiatric disorder 7. Severe withdrawal that cannot be handled at a lower level of care (continued vomiting, continued diarrhea, abnormal vital signs) requiring intravenous medication and/or fluids 8. Admission ROS [facility] - [facility] Chief Complaint: " My problem is alcohol!" Allergies/Adverse Reactions: Allergies Allergy/AdvReac Type Severity Reaction Status Date / Time No Known Allergies Allergy Verified 03/30/19 08:54 History of Present Illness: Here for alcohol detox Last detox at [facility] in 12/19/18 and completed detox. He wishes to continue to rehab this time He has been using since the age 1f 12. Current intake is 4-5 pints/day. Nicotine use since age 13 about 8 ciggs/day State he does not use cocaine but positive U-Tox. Denies use. Denies hx of seizures but has had several blackouts, overdoses. PMHx Denies significant medical problems except Depression and HCV+ but untreated. Rash on both feet and Varicose veins. Denies exposure to syphillis or other transmissible diseases. Psych Hx: Does have some depression but never taken any meds and no current suicidal ideation or plans. PSurg Hx: Negative Legal Issues: None Social Hx: Has and 5 children and 7 grandchildren. Exam Limitations: No Limitations - Ebola screening Have you traveled outside of the country in the last 21 days: No Have you had contact with anyone from an Ebola affected area: No Have you been sick,other than usual withdrawal symptoms: No Do you have a fever: No - Review of Systems Constitutional: No Symptoms Reported, Chills, Loss of Appetite, Unintentional Wgt. Loss EENT: reports: Blurred Vision Respiratory: reports: No Symptoms reported Cardiac: reports: No Symptoms Reported GI: reports: No Symptoms Reported : reports: No Symptoms Reported Musculoskeletal: reports: No Symptoms Reported Integumentary: reports: Rash (legs rash with severe varicose veins) Neuro: reports: Headache Endocrine: reports: No Symptoms Reported Hematology: reports: No Symptoms Reported Psychiatric: reports: Judgement Intact, Mood/Affect Appropiate, Orientated x3, Anxious, Depressed (denies suicidal ideation) Patient History - Patient Medical History Hx Anemia: No Hx Asthma: No Hx Chronic Obstructive Pulmonary Disease (COPD): No Hx Cancer: No Hx Cardiac Disorders: No Hx Congestive Heart Failure: No Hx Hypertension: No Hx Hypercholesterolemia: Yes (no meds) Hx Pacemaker: No HX Cerebrovascular Accident: No Hx Seizures: No Hx Dementia: No Hx Diabetes: No Hx Gastrointestinal Disorders: No Hx Liver Disease: Yes (Hep c never treated) Hx Genitourinary Disorders: No Hx Sexually Transmitted Disorders: No Hx Renal Disease (ESRD): No Hx Thyroid Disease: No Hx Human Immunodeficiency Virus (HIV): No Hx Hepatitis C: Yes (Needs tx.) Hx Depression: Yes Hx Suicide Attempt: Yes (many yrs. ago at 14 y/o tried to hang himself) Hx Bipolar Disorder: Yes Hx Schizophrenia: No - Patient Surgical History Past Surgical History: No Hx Neurologic Surgery: No Hx Cataract Extraction: No Hx Cardiac Surgery: No Hx Lung Surgery: No Hx Breast Surgery: No Hx Breast Biopsy: No Hx Abdominal Surgery: No Hx Appendectomy: No Hx Cholecystectomy: No Hx Genitourinary Surgery: No Hx Section: No Hx Orthopedic Surgery: No Anesthesia Reaction: No - PPD History Date: 12/21/18 - Smoking Cessation Smoking history: Current every day smoker Have you smoked in the past 12 months: Yes Aproximately how many cigarettes per day: 8 Hx Chewing Tobacco Use: No Initiated information on smoking cessation: Yes 'Breaking Loose' booklet given: 03/30/19 - Substances abused Alcohol Substance route: Oral Frequency: Daily Amount used: 4-5 pints of voldka Age of first use: 12 Date of last use: 03/30/19 Family Disease History - Family Disease History Family Disease History: Other: Father ([place]), Mother (cancer?), Brother (12 brothers 3 unknown causes), Sister (4 sisters and unknown health), Son (3 all alive and well), Daughter (2 all alive and well) Admission Physical Exam [facility] - Vital Signs Vital Signs: Vital Signs - 24 hr 03/30/19 08:55 Temperature 97 F L Pulse Rate 81 Respiratory 18 Rate Blood Pressure 95/61 - Physical HEENTM: Yes: Within Normal Limits, EOMI, Hearing grossly Normal, Normal ENT Inspection, Normocephalic, Normal Voice, [place], Pharynx Normal Respiratory: Yes: Chest Non-Tender, Lungs Clear, Normal Breath Sounds Neck: Yes: Within Normal Limits, No masses,lesions,Nodules, Trachea in good position Breast: Yes: Within Normal Limits Cardiology: Yes: Regular Rhythm, Regular Rate, S1, S2 Abdominal: Yes: Normal Bowel Sounds, Non Tender, Soft, Hepatomegaly Genitourinary: Yes: Other (penile mass indurated, pustule) Back: Yes: Normal Inspection Musculoskeletal: Yes: full range of Motion, Gait Steady Extremities: Yes: Normal Capillary Refill, Normal Inspection, Normal Range of Motion, Non-Tender Neurological: Yes: Within Normal Limits, small products assembler II-XII NML intact, Fully Oriented, Alert, Motor Strength 5/5, Normal Mood/Affect Integumentary: Yes: Normal Color, Dry, Warm Lymphatic: Yes: Within Normal Limits - Diagnostic (1) Alcohol dependence with uncomplicated withdrawal Current Visit: Yes Status: Acute (2) Nicotine dependence, uncomplicated Current Visit: Yes Status: Acute Qualifiers: Nicotine product type: cigarettes Qualified Code(s): F17.210 - Nicotine dependence, cigarettes, uncomplicated (3) Alcohol-induced mood disorder Current Visit: Yes Status: Chronic (4) Varicose veins of both lower extremities Current Visit: Yes Status: Chronic Qualifiers: Varicose vein complication: unspecified Qualified Code(s): I83.93 - Asymptomatic varicose veins of bilateral lower extremities Comment: with presence of venous stasis Cleared for Admission [facility] - Detox or Rehab [facility] Level of Care: Medically Managed Detox Regimen/Protocol: Librium Claeared for Rehab Admission: No Screened but not Admitted - Documentation of Visit Screened but not Admitted: No Breathalyzer - Breathalyzer Breathalyzer: 0.116 Vital Signs - Vital Signs Vital signs refused: No Temperature: 97 F Temperature source: Oral Pulse Rate: 81 Respiratory Rate: 18 Blood Pressure: 95/61 BP Location: Left Arm Blood Pressure position: Sitting - Height Height: 5 ft 11 in - Weight Weight: 164 lb Weight measurement method: Standing scale - BMI Body Mass Index (BMI): 22.8 - Bowel Function Bowel Movement: No POC Urine test - Test device test lot number: not applicable Urine Drug Screen - Test Device Lot number: [id number] Expiration date: 07/30/19 - Control Is test valid?: Yes - Results Drug screen NEGATIVE: No (denies use of cocaine but admits something given to him) Urine drug screen results: SARATH-Cocaine Inpatient Rehab Admission - Rehab Decision to Admit Inpatient rehab admission?: No
[2019-03-30] MEDS ORDERED: ACETAMINOPHEN 325 MG TABLET (FP) PO PRN ×2 (09:56)
[2019-03-30] MEDS ORDERED: MENTHOL/PHENOL 1 EACH UD MM PRN (09:56)
[2019-03-30] MEDS ORDERED: LORazepam 1 MG TABLET PO PRN (09:56)
[2019-03-30] MEDS ORDERED: hydrOXYzine PAMOATE 25 MG CAPSULE (FP) PO PRN (09:56)
[2019-03-30] MEDS ORDERED: MAGNESIUM HYDROX 2400MG/30ML ORAL SUSPENSION 30 ML CUP PO PRN (09:56)
[2019-03-30] MEDS ORDERED: METHOCARBAMOL 500 MG TABLET PO PRN (09:56)
[2019-03-30] MEDS ORDERED: IBUPROFEN 400 MG TABLET (FP) PO PRN (09:56)
[2019-03-30] MEDS ORDERED: BISMUTH SUBSALICYLATE 524 MG/30 ML UD PO PRN (09:56)
[2019-03-30] MEDS ORDERED: MAGNESIUM CITRATE 300 ML BOTTLE PO PRN (09:56)
[2019-03-30] MEDS ORDERED: MAG HYDROX/AL HYDROX/SIMETH 30 ML UNIT-DOSE CUP PO PRN (09:56)
[2019-03-30] MEDS ORDERED: MELATONIN 5 MG TABLETS PO PRN (09:56)
[2019-03-30] MEDS ORDERED: LORazepam 0.5 MG TABLET ONE (11:13)
[2019-03-30] MEDS: NICOTINE 14 MG/24 HOURS TOPICAL PATCH TD SCH (11:18)
[2019-03-30] MEDS: PRENATAL VITAMINS W/ FOLIC ACID TABLET (FP) PO SCH (11:23)
[2019-03-30 16:36] LABS: ALBUMIN 3.1 g/dl (3.4-5.0); BILIRUBIN,TOTAL 0.6 mg/dL (0.2-1); BLOOD UREA NITROGEN 12.5 mg/dL (7-18); CALCIUM 8.1 mg/dL (8.5-10.1); CREATININE 0.7 mg/dL (0.55-1.3); POTASSIUM 3.5 mmol/L (3.5-5.1); TOT PROT 7.6 g/dl (6.4-8.2)
[2019-03-30 16:40] LABS: HEMATOCRIT 34.6 % (35.4-49); HEMOGLOBIN 11.6 GM/dL (11.7-16.9); MCH 34.6 pg (25.7-33.7); MCHC 33.5 g/dl (32.0-35.9); MEAN CELL VOLUME 103.2 fl (80-96); MEAN PLT VOLUME 8.3 fl (7.5-11.1); RBC 3.35 M/mm3 (4.00-5.60); RDW 14.4 % (11.9-15.9); WHITE BLOOD COUNT 4.5 K/mm3 (4.0-10.0)
[2019-03-30 19:50] LABS: PLATELET COUNT 99 K/MM3 (134-434)
[2019-03-30] MEDS: LORazepam 2 MG TABLET PO SCH (22:07)
[2019-03-30] MEDS: THIAMINE HCL 100 MG TABLET (FP) PO SCH (22:07)
[2019-03-31] MEDS: LORazepam 2 MG TABLET PO SCH ×4 (07:02→22:33)
[2019-03-31] MEDS: PRENATAL VITAMINS W/ FOLIC ACID TABLET (FP) PO SCH (10:02)
[2019-03-31] MEDS: NICOTINE 14 MG/24 HOURS TOPICAL PATCH TD SCH (10:02)
[2019-03-31] MEDS ORDERED: PNEUMOCOCCAL 23 VACCINE 0.5 ML VIAL IM ONE (12:00)
[2019-03-31] MEDS ORDERED: PNEUMOC 13-VAL CONJ-DIP CRM/PF 0.5 ML DISP.SYRIN IM ONE (12:00)
--- NOTE | 2019-03-31 14:57 | PN ---
[facility] CIWA - CIWA Score Nausea/Vomitin-No Nausea/No Vomiting Muscle Tremors: None Anxiety: 2 Agitation: 1-Slight > Activity Paroxysmal Sweats: No Perspiration Orientation: 2-Disoriented Date<2 days Tacttile Disturbances: 2-Mild Itch/Numbness/Burn Auditory Disturbances: 2-Mild Harshness/Frighten Visual Disturbances: 0-None Headache: 2-Mild CIWA-Ar Total Score: 11 S Progress Note (SOAP) Subjective: Anxious, H/A, Interrupted Sleep. Objective: PATIENT A & O X 2 (UNCERTAIN ABOUT CURRENT DAY / DATE). PATIENT OBSERVED AMBULATING ON UNIT UNASSISTED. IN NO ACUTE DISTRESS. 03/31/19 14:59 Vital Signs Temperature 98.0 F 03/31/19 13:44 Pulse Rate 86 03/31/19 13:44 Respiratory Rate 18 03/31/19 13:44 Blood Pressure 118/95 03/31/19 13:44 O2 Sat by Pulse Oximetry (%) Laboratory Tests 03/30/19 03/30/19 03/30/19 11:40 11:40 11:40 WBC 4.5 RBC 3.35 L Hgb 11.6 L Hct 34.6 L MCV 103.2 H MCH 34.6 H MCHC 33.5 RDW 14.4 Plt Count 99 L D MPV 8.3 Platelet Comment Decreased Sodium 142 Potassium 3.5 Chloride 109 H Carbon Dioxide 26 Anion Gap 7 L BUN 12.5 Creatinine 0.7 Est GFR (CKD-EPI)AfAm 124.87 Est GFR (CKD-EPI)NonAf 107.74 Random Glucose 95 Calcium 8.1 L Total Bilirubin 0.6 AST 160 H ALT 119 H Alkaline Phosphatase 134 H Total Protein 7.6 Albumin 3.1 L RPR Titer Nonreactive LABS NOTED. PATIENT HAS BEEN ANEMIC AND HAS HAD LOW PLATELET LEVELS ON PREVIOUS ADMISSIONS. 03/31/19 15:03 Assessment: 03/31/19 14:59 WITHDRAWAL SYMPTOMS. ELEVATED LIVER ENZYMES. HYPOCALCEMIA. ANEMIA. THROMBOCYTOPENIA. 03/31/19 15:00 Plan: CONTINUE DETOX. INCREASE DAILY PO WATER INTAKE. OSCAL, 500 MG PO BID FOR LOW CALCIUM LEVEL NOTED ON DETOX ADMISSION LABORATORY ASSESSMENT. REPEAT AST TOMORROW AM FOR ELEVATED AST LEVEL NOTED ON DETOX ADMISSION LABORATORY ASSESSMENT. PATIENT IS CURRENTLY RECEIVING DAILY MVI CONTAINING B VITAMINS AND IRON WHILE ADMITTED FOR DETOX.
[2019-03-31] MEDS: THIAMINE HCL 100 MG TABLET (FP) PO SCH (22:33)
[2019-03-31] MEDS: CALCIUM 500MG/VIT-D 200 UNITS COMBO TABLET (FP) PO SCH (22:33)
[2019-04-01] MEDS: LORazepam 1 MG TABLET PO SCH ×4 (06:21→22:18)
[2019-04-01] MEDS: NICOTINE 14 MG/24 HOURS TOPICAL PATCH TD SCH (10:01)
[2019-04-01] MEDS: CALCIUM 500MG/VIT-D 200 UNITS COMBO TABLET (FP) PO SCH ×2 (10:01→22:15)
[2019-04-01] MEDS: PRENATAL VITAMINS W/ FOLIC ACID TABLET (FP) PO SCH (10:02)
--- NOTE | 2019-04-01 13:17 | PN ---
S CIWA - CIWA Score Nausea/Vomitin-No Nausea/No Vomiting Muscle Tremors: 3 Anxiety: 2 Agitation: 2 Paroxysmal Sweats: 1-Minimal Palms Moist Orientation: 0-Oriented Tacttile Disturbances: 0-None Auditory Disturbances: 0-None Visual Disturbances: 0-None Headache: 0-None Present CIWA-Ar Total Score: 8 BHS Progress Note (SOAP) Subjective: sweats irritable body aches Objective: 04/01/19 13:16 Vital Signs Temperature 97.7 F 04/01/19 09:17 Pulse Rate 79 04/01/19 09:17 Respiratory Rate 18 04/01/19 09:17 Blood Pressure 134/87 04/01/19 09:17 O2 Sat by Pulse Oximetry (%) Laboratory Tests 03/30/19 03/30/19 03/30/19 11:40 11:40 11:40 WBC 4.5 RBC 3.35 L Hgb 11.6 L Hct 34.6 L MCV 103.2 H MCH 34.6 H MCHC 33.5 RDW 14.4 Plt Count 99 L D MPV 8.3 Platelet Comment Decreased Sodium 142 Potassium 3.5 Chloride 109 H Carbon Dioxide 26 Anion Gap 7 L BUN 12.5 Creatinine 0.7 Est GFR (CKD-EPI)AfAm 124.87 Est GFR (CKD-EPI)NonAf 107.74 Random Glucose 95 Calcium 8.1 L Total Bilirubin 0.6 AST 160 H ALT 119 H Alkaline Phosphatase 134 H Total Protein 7.6 Albumin 3.1 L RPR Titer Nonreactive 04/01/19 07:00 WBC RBC Hgb Hct MCV MCH MCHC RDW Plt Count MPV Platelet Comment Sodium Potassium Chloride Carbon Dioxide Anion Gap BUN Creatinine Est GFR (CKD-EPI)AfAm Est GFR (CKD-EPI)NonAf Random Glucose Calcium Total Bilirubin AST 121 H ALT Alkaline Phosphatase Total Protein Albumin RPR Titer labs noted; ast improving aaox3 ambulating no acute distress Assessment: 04/01/19 13:17 mild withdrawal sx Plan: continue detox increase fluids
[2019-04-01] MEDS ORDERED: LORazepam 0.5 MG TABLET ONE (21:16)
[2019-04-01] MEDS: THIAMINE HCL 100 MG TABLET (FP) PO SCH (22:14)
[2019-04-02] MEDS ORDERED: LORazepam 0.5 MG TABLET PO PRN
[2019-04-02] MEDS: LORazepam 0.5 MG TABLET PO SCH ×4 (06:43→22:37)
[2019-04-02] MEDS: CALCIUM 500MG/VIT-D 200 UNITS COMBO TABLET (FP) PO SCH ×2 (10:34→22:37)
[2019-04-02] MEDS: PRENATAL VITAMINS W/ FOLIC ACID TABLET (FP) PO SCH (10:34)
[2019-04-02] MEDS: NICOTINE 14 MG/24 HOURS TOPICAL PATCH TD SCH (10:36)
--- NOTE | 2019-04-02 10:44 | PN ---
S CIWA - CIWA Score Nausea/Vomitin-No Nausea/No Vomiting Muscle Tremors: None Anxiety: 2 Agitation: 0-Normal Activity Paroxysmal Sweats: 2 Orientation: 0-Oriented Tacttile Disturbances: 0-None Auditory Disturbances: 0-None Visual Disturbances: 0-None Headache: 0-None Present CIWA-Ar Total Score: 4 BHS Progress Note (SOAP) Subjective: c/o sweats and anxiety. Objective: 04/02/19 10:43 Vital Signs 04/02/19 04/02/19 04/02/19 03:30 06:33 09:41 Temperature 97.7 F 98.3 F Pulse Rate 77 65 73 Respiratory 18 16 17 Rate Blood Pressure 100/74 111/72 Assessment: 04/02/19 10:43 AOX3, in no acute distress. Full ROM, ambulating in the unit. mild withdrawal symptoms. For d/c tomorrow. 04/02/19 10:43 Plan: continue detox. D/C in AM.
[2019-04-02] MEDS: THIAMINE HCL 100 MG TABLET (FP) PO SCH (22:37)
[2019-04-03] MEDS ORDERED: LORazepam 0.5 MG TABLET PO ONE (05:00)
[2019-04-03 09:22] VITALS: BP 114/84; PULSE 70; TEMP 97
--- NOTE | 2019-04-03 13:31 | DS ---
[facility] Detox Discharge Summary Admission Date: 03/30/19 Discharge Date: 04/03/19 - History Present History: Alcohol Dependence Additional Comments: Patient completed detox successfully and discharged safely in stable condition. Patient instructed to follow up with PCP within 1-2 weeks. Pertinent Past History: HLD Bipolar disorder Depression HCV (untreated) - Physical Exam Results Vital Signs: Vital Signs Temperature 97 F L 04/03/19 09:21 Pulse Rate 70 04/03/19 09:21 Respiratory Rate 16 04/03/19 09:21 Blood Pressure 114/84 04/03/19 09:21 O2 Sat by Pulse Oximetry (%) Pertinent Admission Physical Exam Findings: Withdrawal symptoms Laboratory Tests 03/30/19 03/30/19 03/30/19 11:40 11:40 11:40 WBC 4.5 RBC 3.35 L Hgb 11.6 L Hct 34.6 L MCV 103.2 H MCH 34.6 H MCHC 33.5 RDW 14.4 Plt Count 99 L D MPV 8.3 Platelet Comment Decreased Sodium 142 Potassium 3.5 Chloride 109 H Carbon Dioxide 26 Anion Gap 7 L BUN 12.5 Creatinine 0.7 Est GFR (CKD-EPI)AfAm 124.87 Est GFR (CKD-EPI)NonAf 107.74 Random Glucose 95 Calcium 8.1 L Total Bilirubin 0.6 AST 160 H ALT 119 H Alkaline Phosphatase 134 H Total Protein 7.6 Albumin 3.1 L RPR Titer Nonreactive 04/01/19 07:00 WBC RBC Hgb Hct MCV MCH MCHC RDW Plt Count MPV Platelet Comment Sodium Potassium Chloride Carbon Dioxide Anion Gap BUN Creatinine Est GFR (CKD-EPI)AfAm Est GFR (CKD-EPI)NonAf Random Glucose Calcium Total Bilirubin AST 121 H ALT Alkaline Phosphatase Total Protein Albumin RPR Titer Labs reviewed: thrombocytopenia and elevated LFTs noted; most likely r/t alcoholism and hepatitis C. Follow up with PCP for management. - Treatment Hospital Course: Detox Protocol Followed, Detoxed Safely, Responded well, Discharged Condition Good - Medication Discharge Medications: Ambulatory Orders NK [No Known Home Medication] 05/19/17 - Diagnosis (1) Pancytopenia Status: Acute (2) Hepatitis C carrier Status: Chronic (3) Depression Status: Chronic (4) HLD (hyperlipidemia) Status: Chronic (5) Bipolar disorder Status: Chronic (6) Alcohol dependence with uncomplicated withdrawal Status: Acute (7) Liver enzyme elevation Status: Acute (8) Nicotine dependence, uncomplicated Status: Chronic Qualifiers: Nicotine product type: cigarettes Qualified Code(s): F17.210 - Nicotine dependence, cigarettes, uncomplicated - AMA Did Patient Leave Against Medical Advice: No (Follow up with PCP within 1-2 weeks)
== END 2019-04-03 09:48 | disposition home or self-care (01) | DRG 775 ==
LOC: YASAS 08:37 → Y6N 10:12
PROVIDERS: ADMIT Surgery; ATTEND Surgery
PROC: HZ2ZZZZ Detoxification Services for Substance Abuse Treatment (ICD-10-PCS; principal; 2019-03-30)
DX: F10.230 Alcohol dependence with withdrawal, uncomplicated (principal); F17.210 Nicotine dependence, cigarettes, uncomplicated; F31.9 Bipolar disorder, unspecified; D61.818 Other pancytopenia; D69.6 Thrombocytopenia, unspecified; E83.51 Hypocalcemia; E78.5 Hyperlipidemia, unspecified; B18.2 Chronic viral hepatitis C; R94.5 Abnormal results of liver function studies; E78.00 Pure hypercholesterolemia, unspecified; Z91.5 Personal history of self-harm
CPT/HCPCS: 36415; 80053; 84450; 85027; 86593